=== PATIENT | male | born 1985 | race Caucasian/White ===

== ENCOUNTER 2019-04-13 11:18 | Emergency (ER) | payer OTHER ==
[~2019-04-13] VITALS: Ht 165.1 cm; Wt 89.4 kg
[2019-04-13] MEDS ORDERED: INTESTINEX680 M1 PO (16:47)
[2019-04-13] MEDS ORDERED: KETO10TA2 PO (16:47)
[2019-04-13] MEDS ORDERED: AMOX-CLAV 875-1 EACH PO (16:47)
== END 2019-04-13 17:57 | disposition home or self-care (01) ==
LOC: ER 11:18
DX: K04.7 Periapical abscess without sinus (principal)